=== PATIENT | female | born 1995 | race Caucasian/White ===

== ENCOUNTER → 2019-08-12 09:44 | Outpatient (CLI) | payer OTHER, SELFPAY | PROVIDERS: PCP Pediatrics; Referring Provider Pediatrics; Visit Provider Pediatrics | DX: Z03.818 Encounter for observation for suspected exposure to other biological agents ruled out (principal) | CPT/HCPCS: 87635; G2023; U0003 ==

== ENCOUNTER → 2019-08-28 11:12 | Outpatient (CLI) | payer OTHER, SELFPAY | PROVIDERS: PCP Pediatrics; Referring Provider Pediatrics; Visit Provider Pediatrics | DX: U07.1 COVID-19 (principal) | CPT/HCPCS: 87635; G2023; U0003 ==